=== PATIENT | male | born 1995 | race Caucasian/White ===

== ENCOUNTER 2021-07-30 18:52 | Observation (INO) ==
[2021-07-30] MEDS ORDERED: 0.9 % Sodium Chloride 1,000 ML IVC SCH (21:45)
[2021-07-30] MEDS ORDERED: Lidocaine HCL 4 ML Topical Solution (Laryng-O-Jet Kit Sterile Pak) TP ONE (21:49)
[2021-07-30] MEDS ORDERED: *HR* Midazolam HCl 2 MG/2 ML VIAL ONE (21:50)
[2021-07-30] MEDS ORDERED: *HR* Propofol 200 MG/20 ML VIAL IVP ONE (21:50)
[2021-07-30] MEDS ORDERED: *HR* FentaNYL (PF) 100 MCG/2 ML VIAL ONE (21:50)
[2021-07-30] MEDS ORDERED: Ondansetron 4 MG/2 ML VIAL ONE (21:51)
[2021-07-30] MEDS ORDERED: Lidocaine -MPF 2% 5 ML VIAL ONE (21:51)
[2021-07-30] MEDS ORDERED: *HR* Rocuronium Bromide 50 MG/5 ML VIAL ONE (21:51)
[2021-07-30] MEDS ORDERED: CefOXitin 1,000 MG VIAL ONE (22:09)
[2021-07-30] MEDS ORDERED: *HR* OxyCODONE Immed Rel 5 MG TABLET PO PRN (22:35)
[2021-07-30] MEDS ORDERED: *HR* HYDROmorphone PF 0.5 MG/0.5 ML SYRINGE IVP PRN (22:35)
[2021-07-30] MEDS ORDERED: Ondansetron 4 MG/2 ML VIAL IVP PRN (22:35)
[2021-07-30] MEDS ORDERED: Ketorolac 30 MG/ML VIAL ONE (23:21)
[2021-07-31] MEDS ORDERED: *HR* OxyCODONE/APAP 5/325 TABLET PO PRN (00:18)
[2021-07-31] MEDS ORDERED: Ondansetron 4 MG/2 ML VIAL IVP PRN (00:18)
[2021-07-31] MEDS: Piperacillin/Tazobactam 3.375 GM in 0.9 % Sodium Chloride Mini Bag 100 ML IVPB SCH ×2 (00:34→08:39)
[2021-07-31] MEDS: 0.9 % Sodium Chloride 1,000 ML IVC SCH ×2 (00:34→08:40)
[2021-07-31 06:58] VITALS: O2SAT 98
[2021-07-31 10:44] VITALS: BP 96/55; PULSE 79; TEMP 98.4
== END 2021-07-31 12:00 | disposition home or self-care (01) ==
LOC: 3ANU
PROVIDERS: ADMIT Surgery; ATTEND Surgery